=== PATIENT | male | born 1975 ===

== ENCOUNTER 2017-10-12 11:25 | Emergency (ER) | payer OTHER ==
[2017-10-12 11:40] VITALS: BP 126/83; PULSE 96; RESP 16; TEMP 98.2; O2SAT 98
[2017-10-12] MEDS ORDERED: guaiFENesin 100 mg/5 ml Syrup UD PO STA (12:33)
--- NOTE | 2017-10-12 12:34 | C.PDOC ---
History Of Present Illness Yvna Stein is a 42 year old male, with no significant past medical history, who presents to the emergency department complaining of flu-like symptoms onset for x5 days. Patient reports he has been home resting for the last 4 days, he went to work today but feels lethargic, weak with nonproductive cough and body aches. Patient denies taking any medication. He denies any fever, chills or other medical complaints. PMD: None provided. Time Seen by Provider: 10/12/17 11:44 Chief Complaint (Nursing): Flu-like Symptoms History Per: Patient History/Exam Limitations: no limitations Onset/Duration Of Symptoms: Days (x5) Current Symptoms Are (Timing): Still Present Associated Symptoms: Cough (non productive), Other (body aches) Ear Symptoms: Bilateral: None Past Medical History Reviewed: Historical Data, Nursing Documentation, Vital Signs Vital Signs: Last Vital Signs Temp 98.2 F 10/12/17 11:37 Pulse 96 H 10/12/17 11:37 Resp 16 10/12/17 11:37 BP 126/83 10/12/17 11:37 Pulse Ox 98 10/12/17 12:34 - Medical History PMH: No Chronic Diseases Surgical History: No Surg Hx Family History: States: Unknown Family Hx - Social History Hx Tobacco Use: No Hx Alcohol Use: Yes (occasionally) Hx Substance Use: No Review Of Systems Constitutional: Positive for: Weakness (generalized), Other (body aches) Respiratory: Positive for: Cough Physical Exam - Physical Exam Appears: Well, No Acute Distress Skin: Normal Color, Warm, Dry Head: Atraumatic, Normacephalic Eye(s): bilateral: Normal Inspection, PERRL, EOMI Ear(s): Bilateral: Normal Nose: Normal Oral Mucosa: Moist Throat: Normal Neck: Normal ROM, Supple Chest: Symmetrical Cardiovascular: Rhythm Regular, No Murmur Respiratory: Normal Breath Sounds, No Wheezing Gastrointestinal/Abdominal: Normal Exam, Soft, No Tenderness, No Guarding, No Rebound Back: Normal Inspection, No CVA Tenderness, No Vertebral Tenderness, No Paraspinal Tenderness Extremity: Normal ROM, No Deformity, No Swelling Neurological/Psych: Oriented x3 Gait: Steady ED Course And Treatment O2 Sat by Pulse Oximetry: 98 (RA) Pulse Ox Interpretation: Normal Medical Decision Making Medical Decision Making: Initial Impression: Viral syndrome Initial Plan: --Motrin tab 600 mg PO --Robitussin 100 mg PO --Tamiflu Cap 75 mg PO --Reevaluation flu-like symptoms for 6 days but worse today upon returning to work suspect influenza tamiflu started empirically. Disposition Doctor Will See Patient In The: Office Counseled Patient/Family Regarding: Studies Performed, Diagnosis - Disposition Referrals: [facility] [Outside] Disposition: HOME/ ROUTINE Disposition Time: 12:34 Condition: GOOD Additional Instructions: tamiflu 75 mg twice a day for 5 days continue Dayquil/Nyquil as needed for symptomatic relief no work until afebrile for 24 hours. Follow-up in our outpatient Clinic as needed. Prescriptions: Oseltamivir [Tamiflu] 75 mg PO BID #9 cap Instructions: Influenza (ED) Forms: [facility] (Filipino), Work Excuse - Clinical Impression Clinical Impression: Influenza-like illness - Scribe Statement Kalyan Weiss Provider Attestation: All medical record entries made by the Scribe were at my direction and personally dictated by me. I have reviewed the chart and agree that the record accurately reflects my personal performance of the history, physical exam, medical decision making, and the department course for this patient. I have also personally directed, reviewed, and agree with the discharge instructions and disposition.
[2017-10-12] MEDS ORDERED: guaiFENesin 100 mg/5 ml Syrup UD ONE (12:38)
== END 2017-10-12 12:39 | disposition home or self-care (01) ==
LOC: C.ER 11:25
DX: J11.1 Influenza due to unidentified influenza virus with other respiratory manifestations (principal)